=== PATIENT | female | born 1965 | race Caucasian/White ===

== ENCOUNTER 2017-04-27 07:08 | Outpatient (CLI) | payer OTHER ==
[2016-02-17 16:53] VITALS: BP 105/72
== END 2017-04-27 07:10 ==
LOC: LAB 07:08
PROVIDERS: ATTEND Family Medicine
DX: Z11.59 Encounter for screening for other viral diseases (principal); R73.9 Hyperglycemia, unspecified; E78.5 Hyperlipidemia, unspecified
CPT/HCPCS: 36415; 80061; 83036; 86803

== ENCOUNTER 2017-08-18 10:18 | Outpatient (CLI) | payer OTHER ==
[2016-02-17 16:53] VITALS: BP 105/72
== END 2017-08-18 11:22 ==
LOC: LABRHC 10:18
PROVIDERS: ATTEND Physician Assistant
DX: R30.0 Dysuria (principal)
CPT/HCPCS: 87086

== ENCOUNTER 2017-08-22 10:37 | Outpatient (CLI) | payer OTHER ==
[2016-02-17 16:53] VITALS: BP 105/72
[2017-08-22 11:01] LABS: MEAN CORPUSCULAR HEMOGLOBIN 30.3 pg (28.0-34.0); MEAN CORPUSCULAR VOLUME 93.5 fl (80.0-100.0)
[2017-08-22 11:47] LABS: SEGMENTED NEUTROPHILS % 71 % (39-79)
[2017-08-22 11:48] LABS: EOSINOPHILS % 1 % (0-7); MONOCYTES % 3 % (0-11)
[2017-08-22 12:14] LABS: eGFR (African) > 60; eGFR (Non-African) > 60
== END 2017-08-22 10:40 ==
LOC: LAB 10:37
PROVIDERS: ATTEND Family Medicine
DX: N12 Tubulo-interstitial nephritis, not specified as acute or chronic (principal)
CPT/HCPCS: 36415; 80053; 85025

== ENCOUNTER 2017-08-24 07:36 | Outpatient (CLI) | payer OTHER ==
[2016-02-17 16:53] VITALS: BP 105/72
--- NOTE | 2017-08-24 11:07 | Diagnostic Imaging Report ---
RAN CEE [facility] [address] [facility] [address] [place] [address]. [id number] Report Submission Date: Aug 24, 2017 11:05:30 AM MARKETING DATABASE CONSULTANT Patient Study Name: MARGIE COLINDRES Date: Aug 24, 2017 9:23:35 AM MARKETING DATABASE CONSULTANT Modality Type: CT\SR Gender: F Description: CT ABD & PELVIS W/ CON : 63 Institution: [facility] Physician: RAN CEE Examination: CT Abdomen/pelvis History: Generalized abdominal discomfort. Hematuria. Comparison exams: None available for direct review. Technique: CT Abdomen/pelvis with IV protocol. Findings: Liver and spleen enlarged. No central lesion. Adrenals, pancreas, and kidneys are without gross irregularity. No abnormal enhancement. Gallbladder not visualized. No suspicious renal calcifications. Ureters do not appear to be dilated in their course through the abdomen and pelvis. No suspicious calcifications. Bladder contracted limiting evaluation of the mucosa. Abdominal aorta demonstrates mild peripheral atherosclerotic disease. No aneurysm. Cardiac silhouette not enlarged. No pericardial effusion. Contrast within the bowel. No abnormal small bowel dilation. Stool within the large bowel limiting sensitivity. Thickening of large bowel mucosa specifically involving the cecum through ascending colon. No mesenteric inflammatory changes or free fluid. Appendix is visualized and is within normal limits. Few sigmoid diverticula. Osseous structures demonstrate degenerative changes. Lung bases with parenchymal scarring and atelectasis. No effusion. Bilateral breast implants. Impression: Hepatosplenomegaly. No suspicious renal calcifications. No abnormal ureteric dilation. Thickening of the large bowel mucosa from the cecum through the hepatic flexure. Recommend dedicated large bowel imaging or colonoscopy to further evaluate. Sigmoid diverticulosis. No evidence for acute diverticulitis. Electronically signed on Aug 24, 2017 11:05:30 AM MARKETING DATABASE CONSULTANT by: Nick ELDRIDGE
== END 2017-08-24 07:37 ==
LOC: RAD 07:36
PROVIDERS: ATTEND Physician Assistant
DX: R31.9 Hematuria, unspecified (principal); R79.89 Other specified abnormal findings of blood chemistry; R10.9 Unspecified abdominal pain
CPT/HCPCS: 36415; 74177; 86803; Q9966; Q9967

== ENCOUNTER 2017-08-31 16:16 | Outpatient (CLI) | payer OTHER ==
[2016-02-17 16:53] VITALS: BP 105/72
[2017-08-31 17:14] LABS: eGFR (African) > 60; eGFR (Non-African) > 60
[2017-08-31 23:51] LABS: HEPATITIS A AB, TOTAL NEGATIVE (NEGATIVE)
== END 2017-08-31 16:17 ==
LOC: LAB 16:16
PROVIDERS: ATTEND Family Medicine
DX: R74.8 Abnormal levels of other serum enzymes (principal)
CPT/HCPCS: 36415; 80053; 86704; 86706; 86708; 86709; 86803; 87340

== ENCOUNTER 2017-09-07 17:07 | Outpatient (CLI) | payer OTHER ==
[2016-02-17 16:53] VITALS: BP 105/72
[2017-09-07 17:37] LABS: MEAN CORPUSCULAR HEMOGLOBIN 29.9 pg (28.0-34.0); MEAN CORPUSCULAR VOLUME 92.9 fl (80.0-100.0)
[2017-09-07 17:54] LABS: eGFR (African) > 60; eGFR (Non-African) > 60
[2017-09-07 17:55] LABS: SEGMENTED NEUTROPHILS % 29 % (39-79)
[2017-09-07 17:56] LABS: BASOPHILS % 2 % (0-2); EOSINOPHILS % 3 % (0-7); MONOCYTES % 5 % (0-11)
== END 2017-09-07 17:08 ==
LOC: LAB 17:07
PROVIDERS: ATTEND Family Medicine
DX: R74.8 Abnormal levels of other serum enzymes (principal)
CPT/HCPCS: 36415; 80053; 85025; 85610; 85730

== ENCOUNTER 2017-12-01 11:46 | Outpatient (CLI) | payer OTHER ==
[2016-02-17 16:53] VITALS: BP 105/72
== END 2017-12-01 11:47 ==
LOC: LABRHC 11:46
PROVIDERS: ATTEND Family Medicine
DX: E11.9 Type 2 diabetes mellitus without complications (principal)
CPT/HCPCS: 82043

== ENCOUNTER 2017-12-03 08:24 | Outpatient (CLI) | payer OTHER ==
[2016-02-17 16:53] VITALS: BP 105/72
[2017-12-03 09:14] LABS: eGFR (African) > 60; eGFR (Non-African) > 60
== END 2017-12-03 08:25 ==
LOC: LAB 08:24
PROVIDERS: ATTEND Family Medicine
DX: R74.8 Abnormal levels of other serum enzymes (principal); E11.9 Type 2 diabetes mellitus without complications
CPT/HCPCS: 36415; 80053; 80061; 83036; 85610; 85730

== ENCOUNTER 2018-07-31 11:32 | Outpatient (CLI) | payer OTHER ==
[2016-02-17 16:53] VITALS: BP 105/72
== END 2018-07-31 11:44 ==
LOC: LAB 11:32
PROVIDERS: ATTEND Family Medicine
DX: E11.9 Type 2 diabetes mellitus without complications (principal)
CPT/HCPCS: 36415; 83036

== ENCOUNTER 2019-03-08 10:06 | Outpatient (CLI) | payer OTHER ==
[2016-02-17 16:53] VITALS: BP 105/72
== END 2019-03-08 10:11 | disposition home or self-care (01) ==
LOC: LAB 10:06
PROVIDERS: ATTEND Family Medicine
DX: R73.9 Hyperglycemia, unspecified (principal)
CPT/HCPCS: 36415; 83036